=== PATIENT | male | born 1960 | race Caucasian/White ===

== ENCOUNTER 2016-10-16 22:32 | Observation (INO) ==
[2016-10-16] MEDS ORDERED: 0.9 % Sodium Chloride 1,000 ML ONE (22:42)
[2016-10-16] MEDS ORDERED: *HR* Midazolam HCl 2 MG/2 ML VIAL ONE (22:42)
[2016-10-16] MEDS ORDERED: *HR* Heparin 10,000 UNIT/10 ML VIAL ONE (22:42)
[2016-10-16] MEDS ORDERED: *HR* FentaNYL (PF) 100 MCG/2 ML VIAL ONE (22:42)
[2016-10-16] MEDS ORDERED: Tirofiban 5 MG/100ML 0 MG/0 ML BAG IV ONE (22:42)
[2016-10-16] MEDS ORDERED: Heparin 1,000 UNITS/500 mL NS 500 ML ONE (22:42)
[2016-10-16] MEDS ORDERED: Verapamil 5 MG/2 ML VIAL ONE (22:42)
[2016-10-16] MEDS ORDERED: Nitroglycerin 1,000 MCG/10 ML VIAL IV ONE (22:43)
--- NOTE | 2016-10-16 23:01 | Pre-Sedation Evaluation ---
Pre-sedation evaluation - Pre-sedation checklist Date of procedure: 10/16/16 Procedure: [facility] Recent Vitals: vs as documented in emr H&P (including ROS) documented in medical record: Yes Previous reaction to sedatives/anesthetics: No Dietary Status: NPO after Midnight Airway Assessment: Patient can open mouth completely, TMJ function normal Dentition: No loose teeth or bridges ASA Classification *see protocol: CLASS II-Mild systemic disease, E-EMERGENCY- Add to any of the above to indicate emergent (stemi) Plan of Care: Pt appropriate candidate for procedure/moderate/conscious sedation , Risks/benefits of procedure/sedation discussed w/ patient/family, If not NPO; Risk of intake outweiged by necessity to perform procedure
--- NOTE | 2016-10-16 23:03 | Cardiology History & Physical ---
Date of Encounter: 10/23/16 Time of Encounter: 23:00 Assessment and Plan (1) STEMI (ST elevation myocardial infarction) Status: Acute Emergent LHC to delineate any coronary disease amenable to intervention. A/R/B of LHC discussed with him including 1% risk of , CVA, CABG, MANN, bleeding. Asprin, brilinta, heparin given. EF assessment will be completed. Cardiac rehab consult. The assessment and plan as outlined above was discussed with the patient and/or family members who expressed understanding and agreement. All questions were answered. Qualifiers: Involved coronary artery: LAD coronary artery Qualified Code(s): I21.02 - ST elevation (STEMI) myocardial infarction involving left anterior descending coronary artery (2) Diabetes Status: Acute SSI QID FS The assessment and plan as outlined above was discussed with the patient and/or family members who expressed understanding and agreement. All questions were answered. 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 All questions were answered. Qualifiers: Hypertension type: essential hypertension Qualified Code(s): I10 - Essential (primary) hypertension History of Present Illness Chief complaint: chest pain HPI: Mr. Bruce is a 56 year old male with history of diabetes and HTN presents with intermittent 3 day history of back pain radiating mildly into his chest. It became severe tonight and is associated with dyspnea. Minimal improvement with aspirin, brilinta and heparin. He thought it was back strain from yardwork. He has evidence of anterior current of injury and STEMI page was activated. Past Med Surg Social Fam HX - Past Medical History Medical history: diabetes, hypertension - Social History Smoking Status: Current every day smoker Alcohol use: none Drug use: none - Family History Mother History Unknown: Yes Living Status: Father Living Status: Cause of : Heart Attack Hx Family Cardiac Disorders: Yes Medications and Allergies Valsartan/Hydrochlorothiazide [Diovan Hct 160-12.5 mg Tab] 1 each PO DAILY #10 tablet 09/24/16 [Rx] Aspirin 81 mg PO DAILY 10/17/16 [History] Atorvastatin [Lipitor] 40 mg PO HS 10/17/16 [History] Clopidogrel [Plavix] 75 mg PO DAILY #30 tab 10/17/16 [Rx] Metoprolol [Lopressor] 25 mg PO BID 10/17/16 [History] amLODIPine [Norvasc] 10 mg PO DAILY #30 tab 10/17/16 [Rx] hydrALAZINE [HydrALAZINE] 25 mg PO Q8HR #90 tab 10/17/16 [Rx] metFORMIN [Glucophage] 500 mg PO TID 10/17/16 [History] Allergies No Known Allergies Allergy (Verified 10/16/16 21:33) All Systems Review: A 10-system review of systems was performed and is negative for pertinent findings except as documented above in the HPI. - Constitutional Constitutional: no chills, no fever(s) - EENT Eyes: no blurred vision, no loss of vision Nose, mouth and throat: no bleeding gums, no epistaxis - Cardiovascular Cardiovascular: chest pain at rest, chest pain with exertion - Respiratory Respiratory: no hemoptysis, no wheezing - Gastrointestinal Gastrointestinal: no hematemesis, no hematochezia - Genitourinary Genitourinary: no dysuria, no hematuria - Musculoskeletal Musculoskeletal: no arthralgias, no myalgias - Integumentary Integumentary: no erythema, no rash - Neurological Neurological: no focal weakness, no loss of vision - Psychiatric Psychiatric: no anxiety, no depression - Hematological/Lymphatic Hematologic/Lymphatic: no easy bleeding, no easy bruising Physical Examination General: Conversant, Other (mild distress) HEENT: Atraumatic Neck: No JVD Cardiac: Reg Rate and Rhythm Lungs: Normal Breath Sounds Neuro: Alert and responsive, No focal deficits noted Abdomen: Soft Skin: No rashes noted on visualized skin Musculoskeletal: No Chest Wall Tenderness Extremities: No Edema Results 10/17/16 06:01 10/17/16 06:01 - EKG Interpretation EKG results cardiology: personally reviewed, sinus rhythm (anterior current of injury)
[2016-10-16] MEDS ORDERED: 0.9 % Sodium Chloride 500 ML ONE (23:04)
[2016-10-16] MEDS ORDERED: Nitroglycerin 25 MG/250 ML INFUS..BTL IVC ONE (23:43)
[2016-10-16] MEDS ORDERED: Nitroglycerin 0.4 MG TAB.SUBL SL PRN (23:54)
[2016-10-16] MEDS ORDERED: Ondansetron 4 MG/2 ML VIAL IVP PRN (23:54)
[2016-10-16] MEDS ORDERED: *HR* Morphine 2 MG/ML SYRINGE IVP PRN ×2 (23:54→23:57)
[2016-10-16] MEDS ORDERED: *HR* HYDROcodone/Acet 5/325 mg TABLET PO PRN (23:57)
[2016-10-16] MEDS ORDERED: *HR* OxyCODONE/APAP 5/325 TABLET PO PRN (23:57)
[2016-10-16] MEDS ORDERED: Acetaminophen 325 MG TABLET PO PRN (23:57)
[2016-10-16] MEDS ORDERED: Dextrose Gel 15 GM PO PRN ×2 (23:59)
[2016-10-16] MEDS ORDERED: D5% in Water 1,000 ML IVC PRN (23:59)
[2016-10-16] MEDS ORDERED: *HR* Dextrose 50 % in Water (Syg) 50 ML SYRINGE IVP PRN (23:59)
[2016-10-17] MEDS ORDERED: *HR* Metoprolol 5 MG/5 ML VIAL IVP PRN
--- NOTE | 2016-10-17 00:18 | Invasive Diagnostic Lab Proc ---
Name: Poncho Bruce Date of Study: 10/16/2016 Date: 1960 Ht: 72.0in Medical Record#: [id number] Age: 56 Wt: 240.52lb Gender: Male BSA: 2.31 Order #: [id number] BMI: 32.58 Physicians Procedure Physician: Chas Edouard MD, [facility] Referring MD: Referring MD: Staff Name Position Time In Cecilia Garcia RN Monitor 11:38 PM Meghan Tolliver RN Fish Fryer 11:39 PM Abbi Carty RT (R) Scrub 11:39 PM Indications Indication Unstable Angina Procedures Performed Procedure L HRT ARTERY/VENTRICLE ANGIO Pre-Procedure Checklist Informed consent is complete signed and on chart. H&P is on chart. ID band is on and ID verified with patient. Patient NPO for procedure The procedure was described for the patient and questions were answered. Blood Pressure: 195/96 ECG is on chart. Rhythm: NSR Plan of Care Patient will tolerate the procedure without complications. Adequate level of comfort will be maintained. Hemodynamics will remain stable Patient will recover from procedure without complications. Respiratory function will be maintained. Cardiac rhythm will remain stable. Patient temperature will be maintained. Patient and/or family have verbalized understanding of the procedure. Patient Education Chief Complaint/Reason for Test: Cardiac Cath Developmental Category: Adult (18-64 years) Developmentally Appropriate for Age: Yes Learning Barriers: None Education Needs: Plan of Care Education Method: Verbal Information Taught: Cardiac Cath Educational Evaluation: Able to repeat information Intravenous Access Time IV Size Location DC'd Fluid/Drip Rate Units RN 11:02 PM 20g 1 1/4" Patent On Arrival Rt Antecubital 0.9NaCl 25 ml/hr Meghan Tolliver RN 11:02 PM 18g 1 1/4" Patent On Arrival Rt Arm Heparin 21.6 ml/hr Cecilia Garcia RN Allergies No Known Allergies Vital Signs Time BP (mmHg) HR (bpm) O2 Sat. RR (bpm) LOC 11:40 PM / % 5 = Fully awake and oriented or at pre-proc level 11:40 PM / % 5 = Fully awake and oriented or at pre-proc level 11:38 PM 224 / 110 68 96 % 18 11:43 PM 161 / 90 72 93 % 15 11:48 PM 200 / 88 61 93 % 11 11:53 PM 190 / 103 67 93 % 11 Procedural Medications Time Medication Dose Units Method Given By 11:38 PM Heparin Intravenous 11:40 PM Oxygen 2 L/min nasal cannula Meghan Tolliver RN 11:40 PM Lidocaine 2% 0.5 ml Subcutaneous Chas Edouard MD, [facility] 11:41 PM Versed 2 mg Intravenous Meghan Tolliver RN 11:41 PM Fentanyl 50 mcg Intravenous Meghan Tolliver RN 11:41 PM Nitroglycerin 200 mcg Verapamil 2.5 mg Intraarterial Chas Edouard MD, [facility] ASA Classification: Emergent Procedure: ASA score is assumed Bernadine Score Preprocedure Postprocedure Activity 2- Moves 4 extremities sustained head lift Activity 2- Moves 4 extremities sustained head lift Circulation 2- SBP +/= 20 points of pre-anesthetic level Circulation 2- SBP +/= 20 points of pre-anesthetic level Consciousness 2- Awake and alert oriented x 3 Consciousness 2- Awake and alert oriented x 3 O2 Saturation 2- Able to maintain O2 satruation of 92% on room air O2 Saturation 2- Able to maintain O2 satruation of 92% on room air Respiratory 2- Able to deep breathe and cough well Respiratory 2- Able to deep breathe and cough well Total Score 10 Total Score 10 Contrast Agent: Isovue Diagnostic Contrast: 56 ml Total Contrast: 56 ml Fluoro Dose: 203 mGy Procedure Log Time Note Enter By 10:58 PM CathStat 11:26 PM Pt arrived to hoisting laborer 1 at 23:26 [facility] 11:37 PM Vitals capture started with the following parameters, Patient=Adult, Interval=5 min, Initial Ykrxbfjr=655 mmHg, Deflation Rate=5 mmHg, Cuff placed on Right Arm 11:37 PM Recorded ECG: HR=71 Condition=Condition 1 11:38 PM HR=68 bpm, ARLM=077/110 mmhg, SpO2=96.0 %, Resp=18 B/min, Comment=NSR 11:38 PM Patient arrived at 23:38 with Heparin Intravenous drip @ discontinued [facility] 11:39 PM Cecilia Garcia RN Position: Monitor Time in: 23:38 [facility] 11:39 PM Meghan Tolliver RN Position: Fish Fryer Time in: 23:39 [facility] 11:39 PM Abbi Carty RT (R) Position: Scrub Time in: 23:39 [facility] :39 PM Patient charges- Angio tray pack, Navilyst 3mm J, Pulse Oximetry and ACIST tubing and transducer [facility] :39 PM Case Delayed No [facility] PM Hair removed from procedure site in holding area using clippers. Right wrist prepped with Chloraprep by Cecilia Garcia RN, safety strap applied then patient was draped. Skin intact. [facility] :40 PM Hair removed from procedure site in holding area using clippers. Right groin prepped with Chloraprep by Cecilia Garcia RN, safety strap applied then patient was draped. Skin intact. [facility] PM Physician arrived 23: [facility] : PM Meet and greet completed [facility] PM Sign in performed according to hospital policy. [facility] PM Procedure start 23:40 [facility] PM Time: :40 Oxygen on at 2 L/min per nasal cannula by Meghan Tolliver RN [facility] PM Time: 23:40 Patient comfortable and pain free: No [facility] PM Time: :40LOC: 5 = Fully awake and oriented or at pre-proc level [facility] PM Clinical Presentation: STEMI or equivalent [facility] PM Time out performed according to hospital policy [facility] PM Time: 23:40 0.5 ml Lidocaine 2% to right radial Subcutaneous Given by Chas Edouard MD, [facility] : PM Access obtained by percutaneous puncture. 6Fr 10cm Terumo Glidesheath sheath placed in right Radial artery. [id number] [facility] : PM Complaint: Pain; Pain Score: 3 (1-10); Pain Location: Chest; Relief Measure: Medication; Response: . [facility] : PM Time: 23:41 Versed 2 mg Intravenous [facility] Time: 23: Fentanyl 50 mcg Intravenous Given by Meghan Tolliver RN PM Time: 23:41 Patient given 200 mcg Nitroglycerin, and 2.5 mg Verapamil Intraarterial by Chas Edouard MD, [facility] 11:43 PM HR=72 bpm, OSTH=659/90 mmhg, SpO2=93.0 %, Resp=15 B/min, Comment=NSR 11:43 PM 6Fr EBU 3.0 Medtronic guide catheter was used to cannulate the PCI vessel successfully. reused? No [facility] 11:44 PM Pressure channel 1 zero failed. 11:44 PM Pressure channel 1 zero failed. 11:45 PM 0.035 260cm Navilyst 3mmJ wire [id number] [facility] 11:45 PM Recorded Pressure: Ao, HR=65, Condition=Condition 1 (Aorta) Ao 177/95/128 11:45 PM LCA angiography performed in multiple views. [facility] 11:47 PM [facility] 11[facility]47 PM 5Fr TIG catheter inserted over the wire [facility] 11:48 PM RCA angiography performed in multiple views. [facility] 11:48 PM Recorded Pressure: Ao, HR=55, Condition=Condition 1 (Aorta) Ao 154/87/116 11:48 PM HR=61 bpm, ORPS=463/88 mmhg, SpO2=93.0 %, Resp=11 B/min, Comment=NSR 11:49 PM [facility] 11:49 PM 5Fr Pigtail catheter inserted over the wire [facility] lparsley 11:49 PM Catheter selectively placed in left ventricle [facility] 11:51 PM Recorded Pressure: LV, Ao, HR=69, Condition=Condition 1 (Left Ventricle) LV 189/4/19, (Aorta) Ao 182/88/126 11:51 PM Bolus angiogram of left Ventricle complete: 10 ml/sec for a total of 20 mls [facility] 11:51 PM [facility] 11:52 PM Procedure completed at 23:52 [facility] 11:52 PM Sign out completed: Radiation Dose 202.78 mGy Fluoro Time: 2.2 Isovue 370 - 200ml contrast 56 ml given by Chas Edouard MD, [facility]. Complications: NoneCardiac Rehab Consult needed: NoConfirmed administered medications: [facility] 11:52 PM Isovue 370 - 200ml,1 Bottle(s) used. [facility] 11:52 PM Arterial sheath pulled, Vasc Band closure device used and was Successful S/N. [facility] 11:53 PM 12 ml air in Vasc Band. [facility] 11:53 PM Post ECG NSR [facility] 11:53 PM Post Blood [facility] 200[facility] 11:[facility] PM 23:53 Post Pulses Bilateral DP & PT 2+ [facility] 11:53 PM HR=67 bpm, NTVO=591/103 mmhg, SpO2=93.0 %, Resp=11 B/min, Comment=NSR 11:53 PM 23:53 Post Pulses Rt Radial 2+ [facility] 11:53 PM Information taught Cardiac Cath and Vasc Band [facility] 11:53 PM Education needs Procedure, Plan of Care, and Safe & Effective Use of Medications [facility] 11:53 PM Learning barriers :None [facility] 11:53 PM Education Methods Verbal [facility] 11:53 PM Education evaluation Able to repeat information [facility] 11:54 PM Site status No bleeding/hematoma - Rt Wrist as reported by Abbi Carty RT (R) at 23:54 [facility] 11:56 PM Time: 23:40LOC: 5 = Fully awake and oriented or at pre-proc level [facility] 11:56 PM Time: 23:40 Patient comfortable and pain free: Yes [facility] 11:57 PM Coronary Dominance: right [facility] 11:57 PM Lesion found in Mid LAD. Pre Stenosis: 50 [facility] 11:57 PM Lesion found in 1st Marginal. Pre Stenosis: 40 [facility] 11:58 PM Mid/Distal Left Anterior Descending Coronary Artery and diagonal branches with 50% stenosis. [facility] 11:58 PM Circumflex, Obtuse Marginal, Left Posterior Descending, and Left Posterolateral Coronary Arteries with 40 % stenosis. [facility] 12:03 AM Report given to Luz Elena MARTEL Pt taken to 2A Room #35. 00:01 [facility] 12:03 AM Plavix, Effient or Brilinta given Yes at [facility] 12:03 AM Delay to floor No [facility] 12:04 AM Patient out of room: 00:03 [facility] 12:04 AM Family not available [facility] 12:04 AM Complications: None [facility] 12:05 AM Fluoro Time: 2.2 [facility] 12:05 AM Isovue 370 - 200ml contrast 56 ml given by Chas Edouard MD, [facility]. [facility] 12:05 AM Radiation Dose 202.78 mGy [facility] Complications Complication None Hemodynamics Pressures Site Systolic/A Wave Diastolic/V Wave Mean AO 177 95 128 AO 154 87 116 LV 189 4 19 AO 182 88 126 Post Procedure Information Blood Pressure: 200/88 mmHg Rhythm: NSR Post procedural instructions were given Closure Device Time Device Success/Fail 10/16/2016 11:53:00 PM Mechanical Compression Successful Site Checks Time Location Status Staff Sheath In? Note 11:54 PM Rt Wrist No bleeding/hematoma Abbi Carty RT (R) Pulses Time Site Pre-Procedure Post-Procedure Note 11:53:00 PM Bilateral DP & PT 2+ 11:53:00 PM Rt Radial 2+ 10/16/2016 11:40:00 PM Bilateral DP & PT 2+ 10/16/2016 11:40:00 PM Rt Radial 2+ Updated by Cecilia Garcia RN on 10/17/2016 12:07:59 AM electronically signed on 10/17/2016 12:11:02 AM with status of Final
[2016-10-17] MEDS ORDERED: *HR* Enoxaparin 40 MG/0.4 ML SYRINGE SQ SCH (06:00)
[2016-10-17 06:24] LABS: Basophils # 0.1 K/mcL (0.0-0.2); Basophils % 1.1 %; Eosinophils # 0.4 K/mcL (0.0-0.6); Eosinophils % 4.3 %; Hemoglobin 16.8 g/dL (12.9-16.9); Immature Granulocytes % 0.2 % (0-4); Lymphocytes # 2.9 K/mcL (0.6-4.6); Lymphocytes % 35.1 %; Mean Corpuscular HGB Conc 34.3 g/dL (31.6-35.5); Mean Corpuscular Hemoglobin 30.1 pg (28.0-33.3); Mean Corpuscular Volume 87.8 fL (83.0-100.0); Mean Platelet Volume 11.4 fL (9.4-12.4); Monocytes # 0.7 K/mcL (0.0-1.3); Monocytes % 8.3 %; Neutrophils # 4.2 K/mcL (1.6-8.9); Platelet Count 196 K/mcL (140-400); Red Blood Count 5.58 M/mcL (4.19-5.50); Red Cell Distribution Width 12.9 % (11.5-14.5)
[2016-10-17 06:35] LABS: BUN/Creatinine Ratio 14 (6-26); Blood Urea Nitrogen 14 mg/dL (8-26); Calcium 9.1 mg/dL (8.6-10.8); Carbon Dioxide 26 mEq/L (19-29); Chloride 105 mEq/L (98-109); Glucose 281 mg/dL (70-99); Osmolality,Calculated 293 (280-300); Potassium 4.3 mEq/L (3.5-4.5); Sodium 136 mEq/L (136-145); eGFR For African Americans > 60 (> 60); eGFR For Non-African Americans > 60 (> 60)
[2016-10-17] MEDS: Insulin LISPRO 300 UNITS/3 ML VIAL SQ SCH ×2 (08:47→12:12)
[2016-10-17] MEDS ORDERED: amLODIPine 5 MG TABLET PO SCH (09:00)
[2016-10-17] MEDS ORDERED: hydroCHLOROthiazide 25 MG TABLET PO SCH (09:00)
[2016-10-17] MEDS ORDERED: Aspirin 81 MG TAB.CHEW PO SCH (09:00)
[2016-10-17] MEDS ORDERED: Valsartan 160 MG TABLET PO SCH (09:00)
[2016-10-17] MEDS ORDERED: *HR* HYDROcodone/Acet 5/325 mg TABLET PO PRN (09:20)
[2016-10-17] MEDS ORDERED: *HR* Morphine 2 MG/ML SYRINGE IVP PRN (09:20)
[2016-10-17] MEDS ORDERED: Acetaminophen 325 MG TABLET PO PRN (09:20)
[2016-10-17] MEDS ORDERED: *HR* OxyCODONE/APAP 5/325 TABLET PO PRN (09:21)
[2016-10-17] MEDS ORDERED: amLODIPine 5 MG TABLET PO ONE (11:45)
[2016-10-17] MEDS ORDERED: hydrALAZINE 25 MG TABLET PO SCH (13:00)
[2016-10-17 14:31] VITALS: BP 166/84
--- NOTE | 2016-10-17 14:38 | Cardiology Progress Note ---
Date of Encounter: 10/17/16 Assessment and Plan Discussion w patient/family: The assessment and plan as outlined above was discussed with the patient and/or family members who expressed understanding and agreement. All questions were answered. Thank you for involving us in the care of your patient. Please call with any questions. Objective Vital Signs, Last 4 Hours Temp Pulse Resp BP Pulse Ox 10/17/16 14:30 71 166/84 10/17/16 11:35 97.6 F 59 18 172/101 98 10/17/16 11:32 59 178/102 10/17/16 11:31 57 187/107 Results 10/17/16 06:01 10/17/16 06:01 Lab Results 10/17/16 10/17/16 06:01 06:01 WBC 8.2 Hgb 16.8 Hct 49.0 Plt Count 196 Sodium 136 Potassium 4.3 Chloride 105 Carbon Dioxide 26 BUN 14 Creatinine 0.98 Glucose 281 H Calcium 9.1 Consult Discharge Plan - Plan Referrals: Trevon Anand DO [Primary Care Provider] - (web request sent on )
--- NOTE | 2016-10-17 14:39 | Discharge Summary ---
Date of Encounter: 10/17/16 Time of Encounter: 14:30 - Discharge Diagnosis (1) ACS (acute coronary syndrome) Priority: Primary Status: Ruled-out Comments: ACS ruled out--LHC: mild, non-obstructive CAD. 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 Qualified Code(s): E11.59 - Type 2 diabetes mellitus with other circulatory complications (3) HTN (hypertension) Priority: Secondary Status: Acute Qualifiers: Hypertension type: essential hypertension Qualified Code(s): I10 - Essential (primary) hypertension - Discharge Medications Prescriptions: hydrALAZINE [HydrALAZINE] 25 mg PO Q8HR #90 tab amLODIPine [Norvasc] 10 mg PO DAILY #30 tab Clopidogrel [Plavix] 75 mg PO DAILY #30 tab Home Medications: Valsartan/Hydrochlorothiazide [Diovan Hct 160-12.5 mg Tab] 1 each PO DAILY #10 tablet 09/24/16 [Rx] Aspirin 81 mg PO DAILY 10/17/16 [History] Atorvastatin [Lipitor] 40 mg PO HS 10/17/16 [History] Clopidogrel [Plavix] 75 mg PO DAILY #30 tab 10/17/16 [Rx] Metoprolol [Lopressor] 25 mg PO BID 10/17/16 [History] amLODIPine [Norvasc] 10 mg PO DAILY #30 tab 10/17/16 [Rx] hydrALAZINE [HydrALAZINE] 25 mg PO Q8HR #90 tab 10/17/16 [Rx] metFORMIN [Glucophage] 500 mg PO TID 10/17/16 [History] Allergies/Adverse Reactions: Allergies No Known Allergies Allergy (Verified 10/16/16 21:33) Procedures/tests Complete & Pending: Procedures Performed prior 72 hours Category Date Time Status Left Heart Cath [CL Cardiac Catheterization] [CL] Stat [employer] 10/16/16 22: 39 Ordered ECG 12 lead ECG [ECG] Routine Y 10/16/16 23:54 Ordered ECG 12 lead ECG [ECG] Routine Y 10/17/16 07:00 Ordered ECG 12 lead ECG [ECG] Stat Y 10/16/16 23:54 Completed EV echocardiogram Routine Y 10/17/16 23:54 Completed Date of admission: 10/16/16 23:41 Primary care physician: Trevon Anand DO Consults: 10/16/16 23:54 Consult to Cardiac Rehabilitation-Phase1 [CONS] Routine Comment: Reason for Consult: AMI Call Completed: Yes Consult to Nurse Navigator [CONS] Routine Comment: Discharging clinician: Margaux Ramirez Anticipated date of discharge: 10/17/16 - Patient Status Disposition: Home, Self-Care Condition: Good Functional capacity at discharge: independent ambulation Overall status at discharge: patient is progressing back to baseline - Discharge Instructions Follow Up With: Trevon Anand DO [Primary Care Provider] - (web request sent on ) Chas Edouard MD [Partnered Physician] - (Office will call with appt, follow- up in 2-3 weeks ) Additional Instructions: RISK FACTORS: STOP SMOKING: If you smoke, STOP. Smoking or tobacco use significantly increases your risk of heart disease because nicotine causes the arteries to narrow or constrict. It also causes fats to stick to the artery. Your chances of having a heart attack are greatly increased if you continue to smoke. For more information, call the education line for smoking cessation 8-098-NVMECJW EAT A LOW FAT/CHOLESTEROL/SODIUM DIET: This diet may help reduce your chances of having a heart attack. LIFTING: Avoid lifting anything more than 10 pounds for 5-7 days Prior to straining, laughing, sneezing and/or coughing, apply manual pressure directly over insertion site. ACTIVITY: You may walk or climb stairs as tolerated You can resume sexual activity as tolerated In general, you are encouraged to engage in a minimum of 30 minutes or more of moderate intensity physical activity, such as brisk walking, daily or at least 3 -4 times weekly BATHING Do not submerge the site into water (bath tub, hot tub, swimming pool) for 1 week. This can be a source for infection into the blood stream. You may shower after 24 hours SITE CARE: After 24 hours, you may remove the dressing and leave the site open to air. Keep the site clean and dry. Clean gently and pat dry. You can expect bruising and tenderness that gradually resolve within a week or two. 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 Warning signs: Sudden numbness or weakness of the face, arm or leg; especially on one side of the body, sudden confusion, trouble speaking or understanding, sudden trouble seeing in one or both eyes, sudden trouble walking, dizziness, loss of balance or coordination, sudden severe headache with no cause. Call 911 or go to the Emergency Room. CONGESTIVE HEART FAILURE: If you have been diagnosed with Congestive Heart Failure (CHF) and your symptoms return, make an appointment with your physician Weigh yourself daily. Notify your physician if you have a weight gain of two or more pounds in one day or five or more pounds in one week. If you experience any difficulty breathing, please call 911 BLEEDING: Although the risk of bleeding is minimal, it can happen. If you have any bleeding from the site, apply firm pressure above the puncture site for 10-15 minutes. If the bleeding does not stop, continue manual pressure and call 911 Contact your physician if: You develop a fever greater than 101 degrees Fahrenheit Your site becomes reddened or has any drainage You have an increase in pain or burning at the site or if a large knot forms at the site. If you experience chest pain, shortness of breath, dizziness, or extreme tiredness, stop the activity and rest. Please notify your physicians office if you experience any of these symptoms and they are not relieved by rest please call 911! - Diet and Activity Activity: increase activity as tolerated, return to work once cleared by your PCP/specialist Diet: low fat, low cholesterol, low salt diet - Hospital Course Hospital course: Mr. 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 Reviewed ECG with Dr. Edouard, felt changes were secondary to LVH with secondary changes. He recommends patient to be started on plavix and asa given co-morbidities given tobacco use, DMII, and HTN. Echocardiogram demonstrated preserved LVEF, no significant valvular dysfunction, and moderate LVH. Blood pressure control has improved with the addition of amlodipine and hydralazine. He was given new Rx for added antihypertensives. Labs and telemetry were stable. He has follow-up with his PCP on Friday. He was encouraged to keep BP log over the weekend. He has been up and ambulating in room without symptoms. Right radial cath site stable. Cardiology office will contact patient with appt date and time for f/u in 2-3 weeks. Mr. Bruce is being prepped for discharge to home in stable condition, all questions and concerns were addressed prior to discharge. Patient was discussed and reviewed with Dr. Juan Carlos Sewnson who agrees with plan/discharge as stated above. Time spent discussing smoking cessation with patient: 3 to 10 minutes - Time Spent with Patient Total time spent providing and/or coordinating discharge services: 45 minutes Greater than 30 minutes Specific discharge activities: per post C (radial approach) discharge instructions, please provide patient with written copy. No heavy lifting >5lbs for 3 days. Keep cath site clean and dry. Physical Examination Vital Signs, Last 4 Hours Temp Pulse Resp BP Pulse Ox 10/17/16 14:30 71 166/84 10/17/16 11:35 97.6 F 59 18 172/101 98 10/17/16 11:32 59 178/102 10/17/16 11:31 57 187/107 General: Conversant, No Apparent Distress HEENT: Atraumatic, Normocephaly, Mucus Membranes Moist Cardiac: Reg Rate and Rhythm, Normal S1 and S2 Lungs: Normal Breath Sounds Neuro: Alert and responsive Abdomen: Soft Skin: No rashes noted on visualized skin Musculoskeletal: No Chest Wall Tenderness Extremities: No Edema, Normal Pulses Other: right radial cath site: +2 pulses, no oozing, hematoma or bleeding at site. Brisk cap refill.
[2016-10-17] MEDS ORDERED: Insulin LISPRO 300 UNITS/3 ML VIAL SQ SCH (21:00)
--- NOTE | 2016-10-18 07:48 | Electrocardiograph Report ---
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
[2016-10-18] MEDS ORDERED: amLODIPine 5 MG TABLET PO SCH (09:00)
--- NOTE | 2016-10-21 16:03 | Invasive Diagnostic Lab ---
Name: Poncho Bruce Date of Study: 10/16/2016 Date: 1960 Ht: 183.0 cm /72.0 in Medical Record#: [id number] Age: 56 Wt: 109.1 kg / 240.52 lb Account/Order#: [id number] Gender: Male BSA: 2.31 Order #: [id number] Fluoro Dose: 203 mGy BMI: 32.58 Procedure Physician: Chas Edouard MD, FACC Referring MD: Referring MD: Procedures Performed: Transradial LEFT HEART CATH Indications: Unstable Angina Impressions: There is mild two vessel coronary artery disease. The left ventricle is normal and has normal contractility EF 65% Recommendations: Optimal medical therapy of patient's disease. Aggressive risk factor modification. History/Risk Factors: Diabetes Hypertension Dyslipidemia Current/Recent Smoker Procedure Access obtained in the right Radial artery by percutaneous puncture Complications: None Contrast: Isovue 56ml Closure Device: Mechanical Compression Hemodynamics: Pressures Site Systolic/ A Wave Diastolic/ V Wave End Diastolic/ Mean HR AO 177 95 128 65 AO 154 87 116 55 LV 189 4 19 69 AO 182 88 126 69 LV Ventriculography Ejection Method: LV Gram Ejection Fraction: 65% Wall Motion: RENDON Anterobasal Normal Anterolateral Normal Apical: Normal Inferoapical Normal Inferobasal Normal Coronary Dominance: right Left main coronary artery: Normal Left anterior descending artery: Proximal 15%. Distal small diffusely diseased Diagonal 15% Left circumflex artery: Proximal 15% Right coronary artery: Mid 30%. PDA 30% Updated by Cecilia Garcia RN on 10/17/2016 12:08:17 AM Chas Edouard MD, FACC electronically signed on 10/21/2016 3:56:03 PM with status of Final
== END 2016-10-17 15:45 | disposition home or self-care (01) ==
LOC: ICNU → 2ANU 10-17
PROVIDERS: ADMIT Emergency Medicine; ATTEND Internal Medicine